=== PATIENT | male | born 1970 | race Caucasian/White ===

== ENCOUNTER 2018-11-05 01:59 | Emergency (ER) | payer BC ==
[2018-11-05 02:03] VITALS: BP 133/85
--- NOTE | 2018-11-05 02:36 | ED ---
Throat Pain/Nasal Congestion - HPI Summary HPI Summary: Pt is a 48 male who presents to the ED c/o ear pain. At 1:30 this morning he woke up with sharp pain to his left inner ear. Pt also c/o muffled hearing and tinnitus. Pain is rated an 8/10 in severity and is also described as pressure. He denies any rhinorrhea, sore, throat, or fevers. 2 days ago he flew back from [place] and denies any issues with landing or taking off. Pt has not been able to pop his ear. - History of Current Complaint Chief Complaint: EDEarPain Time Seen by Provider: 11/05/18 02:32 Hx Obtained From: Patient Onset/Duration: Sudden Onset, Lasting Hours - 1:30 this morning, Still Present Severity: Severe - 8/10 Associated Signs And Symptoms: Positive: Negative Cough: None Related History: Other (Noted In Comments) - recent flying - Allergies/Home Medications Allergies/Adverse Reactions: Allergies Allergy/AdvReac Type Severity Reaction Status Date / Time No Known Allergies Allergy Verified 11/05/18 02:03 PMH/Surg Hx/FS Hx/Imm Hx Endocrine/Hematology History: Denies: Hx Diabetes Psychiatric History: Reports: Hx 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 Negative: Sore Throat, Nasal Discharge All Other Systems Reviewed And Are Negative: Yes Physical Exam - Summary Physical Exam Summary: Appearance: well appearing, no pain distress Skin: warm, dry, reflects adequate perfusion Head/face: normal Eyes: EOMI, [facility]: mucous membranes moist, no mastoid tenderness or redness of left ear, clear fluid behind left TM with mild injection of the TM Neck: supple, non-tender Respiratory: CTA, breath sounds present Cardiovascular: RRR, pulses symmetrical Abdomen: non-tender, soft Bowel Sounds: present Musculoskeletal: normal, strength/ROM intact Neuro: normal, sensory motor intact, A&Ox3 Triage Information Reviewed: Yes Vital Signs On Initial Exam: Initial Vitals Temp Pulse Resp BP Pulse Ox 97.3 F 89 16 133/85 99 11/05/18 02:00 11/05/18 02:00 11/05/18 02:00 11/05/18 02:00 11/05/18 02:00 Vital Signs Reviewed: Yes Diagnostics - Vital Signs Vital Signs Temp Pulse Resp BP Pulse Ox 11/05/18 02:00 97.3 F 89 16 133/85 99 - Laboratory Lab Statement: Any lab studies that have been ordered have been reviewed, and results considered in the medical decision making process. EENT Course/Dx - Course Course Of Treatment: Patient with left-sided serous effusion and mild injection without evidence of otitis media. Bupivacaine with epinephrine was dropper din the ear with some relief. He was started on Afrin here and Sudafed. He'll continue this outpatient. Likely related to recent airline travel. No antibiotics at this time. Follow up with primary care. - Differential Diagnoses Differential Diagnoses: Other - Serous otitis, otitis media, otitis externa, barotrauma - Diagnoses Provider Diagnoses: Serous otitis media Discharge - Sign-Out/Discharge Documenting (check all that apply): Patient Departure - Discharge Patient Received Moderate/Deep Sedation with Procedure: No - Discharge Plan Condition: Improved Disposition: HOME Patient Education Materials: Serous Otitis Media (ED) Referrals: Jazzy Mendieta MD [Primary Care Provider] - Additional Instructions: Use provided Afrin 2-3 times daily for maximum of 3 days or until the ear clears. Use [id number] Sudafed twice a day per box instructions until well. Ibuprofen as needed for discomfort. Call your doctor in the morning to schedule follow-up. - Billing Disposition and Condition Condition: IMPROVED Disposition: Home - Attestation Statements Document Initiated by Cesiliaibe: Yes Documenting Scribe: Lisset Joseph Provider For Whom Jair is Documenting (Include Credential): Paulino Alejandro MD Scribe Attestation: Lisset Silva scribed for Paulino Alejandro MD on 11/05/18 at 0620. Scribe Documentation Reviewed: Yes Provider Attestation: The documentation as recorded by the Lisset watson accurately reflects the service I personally performed and the decisions made by me, Paulino Alejandro MD Status of Scribe Document: Viewed
[2018-11-05] MEDS ORDERED: Pseudoephedrine TAB* 30 MG PO ONE (02:38)
[2018-11-05] MEDS ORDERED: Bupivacaine 0.5% W/EPI SDV* 30 ML VIAL INJ ONE (02:38)
[2018-11-05] MEDS ORDERED: Oxymetazoline 0.05% NASAL SPR* 15 ML BTL LEFT NARE ONE (02:38)
== END 2018-11-05 03:10 | disposition home or self-care (01) ==
LOC: ED 01:59
DX: H65.92 Unspecified nonsuppurative otitis media, left ear (principal); F10.11 Alcohol abuse, in remission; F17.210 Nicotine dependence, cigarettes, uncomplicated
CPT/HCPCS: 96372; 99282; A9270-GY